=== PATIENT | female | born 1960 | race Caucasian/White ===

== ENCOUNTER 2018-06-06 17:34 | Emergency (ER) | payer BC ==
--- NOTE | 2018-06-06 17:50 | ED ---
HPI Chest Pain - HPI Summary HPI Summary: This is scribe Ed Charito documenting for attending Abundio Jennings MD. 58 y/o female presents to the ED c/o epigastric pain at around 16:30 today. Pain described as a "heaviness" and like "an upset stomach". Pt on way to [place], driving. While driving pt developed sharp epigastric pain and radiating to the center of her back - 6-7/10 at onset. Pain did not change with movement or change in position. Pain subsided some - 3/10 now. Associated sx: chills. PMHx GERD. FHx CVA (mother), [place] (father). At the doctor's office pt states she had low BP. Pt had a stress test done in 2010 after her . I, Dr. Jennings, personally performed the services described in this documentation as scribed in my presence and it is both accurate and complete. - History of Current Complaint Chief Complaint: EDChestPainROMI Time Seen by Provider: 06/06/18 17:44 Hx Obtained From: Patient Hx Last Menstrual Period: 09/28/12 Timing: Lasting Hours Pain Intensity: 4 Pain Scale Used: 0-10 Numeric Chest Pain Location: Discrete at: - epigastrium Chest Pain Radiates: Yes Chest Pain Radiates To:: Back - center Character: Heaviness, Sharp/Stabbing Aggravating Factor(s): Nothing Alleviating Factor(s): Nothing Associated Signs and Symptoms: Positive: Chills - Additional Pertinent History Primary Care Physician: [id number] - Allergy/Home Medications Allergies/Adverse Reactions: Allergies Allergy/AdvReac Type Severity Reaction Status Date / Time bee venom protein (honey bee) Allergy Swelling Verified 06/06/18 17:55 Penicillins Allergy Hives Verified 06/06/18 17:55 Home Medications: Home Medications Naproxen [Naproxen 500 mg tab] 500 mg PO DAILY PRN 06/06/18 [History Confirmed 06/06/18] PMH/Surg Hx/FS Hx/Imm Hx Previously Healthy: No Endocrine/Hematology History: Reports: Hx Blood Transfusions - venafor transfusions, Hx Anemia - NOT CURRENTLY Denies: Hx Anticoagulant Therapy, Hx Diabetes, Hx Thyroid Disease Cardiovascular History: Reports: Hx Angina - 09/26 MID CHEST RAD. INTO MID BACK , Hx Peripheral Vascular Disease - RT LEG GREATER SAPHENOUS MARTIN- SURGERY, SOME SWELLING, Hx Valvular Heart Disease - MILD TRICUSPID [place]AK, Other Cardiovascular Problems/Disorders - systemic vascular problems Denies: Hx Hypertension, Hx Pacemaker/ICD Respiratory History: Reports: Other Respiratory Problems/Disorders - Recent bronchitis with 2 rounds of zithromax and neb tx Denies: Hx Asthma, Hx Chronic Obstructive Pulmonary Disease (COPD) GI History: Reports: Hx Gastroesophageal Reflux Disease - WELL CONTROLLED, Hx Ulcer - TAKES OMEPRAZOLE FOUND ON ENDOSCOPY History: Denies: Hx Renal Disease Musculoskeletal History: Reports: Hx Arthritis - OSTEOARTHRITIS BILATERAL KNEES Sensory History: Denies: Hx Contacts or Glasses, Hx Hearing Aid Opthamlomology History: Denies: Hx Contacts or Glasses Neurological History: Denies: Hx Dementia, Hx Seizures Psychiatric History: Denies: Hx Panic Disorder, Hx Substance Abuse - Cancer History Cancer Type, Location and Year: skin cancer removed from nose and ear - Surgical History Surgery Procedure, Year, and Place: Appendectomy at a child. Tonsillectomy as a child. SAPHENOUS VEIN REMOVED [place] [facility] [place] UTERINE ABLATION [facility] [place]. EYELID REDUCTION [place] Hx Anesthesia Reactions: No Infectious Disease History: No Infectious Disease History: Denies: Hx Clostridium Difficile, Hx Hepatitis, Traveled Outside the [place] in Last 30 Days - Family History Known Family History: Positive: Cardiac Disease - [place], Other - CVA - Social History Alcohol Use: Occasionally Alcohol Amount: 1-3 TIMES/WEEK Hx Substance Use: No Substance Use Type: Reports: None Hx Tobacco Use: No Smoking Status (MU): Never Smoked Tobacco Review of Systems Positive: Chills Eyes: Negative ENT: Negative Cardiovascular: Negative Respiratory: Negative Positive: Abdominal Pain - epigastrium Genitourinary: Negative Musculoskeletal: Negative Skin: Negative Neurological: Negative Psychological: Normal All Other Systems Reviewed And Are Negative: Yes Physical Exam - Summary Physical Exam Summary: Appearance: The patient is well-nourished in no acute distress and in no acute pain. Skin: The skin is warm and dry and skin color reflects adequate perfusion. HEENT: The head is normocephalic and atraumatic. The pupils are equal and reactive. The conjunctivae are clear and without drainage. Nares are patent and without drainage. Mouth reveals moist mucous membranes and the throat is without erythema and exudate. The external ears are intact. The ear canals are patent and without drainage. The tympanic membranes are intact. Neck: The neck is supple with full range of motion and non-tender. There are no carotid bruits. There is no neck vein distension. Respiratory: Chest is non-tender. Lungs are clear to auscultation and breath sounds are symmetrical and equal. Cardiovascular: Heart is regular rate and rhythm. There is no murmur or rub auscultated. There is no peripheral edema and pulses are symmetrical and equal. Abdomen: The abdomen is soft and tender in the epigastrium. There are normal bowel sounds heard in all four quadrants and there is no organomegaly palpated. Musculoskeletal: There is no back tenderness noted. Extremities are non-tender with full range of motion. There is good capillary refill. There is no peripheral edema or calf tenderness elicited. Neurological: Patient is alert and oriented to person, place and time. The patient has symmetrical motor strength in all four extremities. Cranial nerves are grossly intact. Deep tendon reflexes are symmetrical and equal in all four extremities. Psychiatric: The patient has an appropriate affect and does not exhibit any anxiety or depression. Triage Information Reviewed: Yes Vital Signs On Initial Exam: Initial Vitals Temp Pulse Resp BP Pulse Ox 98.9 F 76 18 149/95 100 06/06/18 17:35 06/06/18 17:35 06/06/18 17:35 06/06/18 17:35 06/06/18 17:35 Vital Signs Reviewed: Yes Diagnostics - Vital Signs Vital Signs Temp Pulse Resp BP Pulse Ox 06/06/18 17:35 98.9 F 76 18 149/95 100 - Laboratory Result Diagrams: 06/06/18 18:05 06/06/18 18:05 Lab Statement: Any lab studies that have been ordered have been reviewed, and results considered in the medical decision making process. - Radiology CXR Xray Interpretation: No Acute Changes - No evidence for acute intrathoracic disease. Radiology Interpretation Completed By: Radiologist - EKG 1 EKG Interpretation: 18:19 - NSR @ 76 BPM. Chest Pain Course/Dx - Course Course Of Treatment: Ms. Ugalde was worked up here for chest pain with labs including an negative d-dimer and delayed troponin. She felt improved and her workup was normal and I recommended close follow-up with her PCP. - Diagnoses Provider Diagnoses: Chest pain Discharge - Sign-Out/Discharge Documenting (check all that apply): Patient Departure - Discharge Plan Condition: Stable Disposition: HOME Patient Education Materials: Chest Pain (ED) Referrals: Britni Us [Primary Care Provider] - 4 Days (PLEASE F/U IN 3-5 DAYS ) Additional Instructions: RETURN TO THE ED FOR WORSENING OR RETURNING SYMPTOMS - Billing Disposition and Condition Condition: STABLE Disposition: Home
[2018-06-06] MEDS ORDERED: Sucralfate TAB* 1 GM PO ONE (17:53)
[2018-06-06 18:14] LABS: ABS Basophils 0.1 10^3/ul (0-0.2); ABS Eosinophils 0.1 10^3/ul (0-0.6); ABS Lymphocytes 1.4 10^3/ul (1.0-4.8); ABS Monocytes 0.3 10^3/ul (0-0.8); ABS Neutrophils 3.7 10^3/ul (1.5-7.7); ABS Nucleated RBC 0 10^3/ul; Eosinophil % 1.2 % (0-6); Hematocrit 42 % (35-47); Hemoglobin 14.1 g/dl (12.0-16.0); Lymphocyte % 25.3 % (25-47); Mean Corpuscular HGB Conc 34 g/dl (31-36); Mean Corpuscular Hemoglobin 31 pg (27-31); Mean Corpuscular Volume 93 fL (80-97); Mean Platelet Volume 8.7 um3 (7.4-10.4); Nucleated Red Blood Cells % 0.1; Platelet Count 212 10^3/ul (150-450); Red Blood Count 4.51 10^6/ul (4.00-5.40); Red Cell Distribution Width 13 % (10.5-15); White Blood Count 5.4 10^3/ul (3.5-10.8)
[2018-06-06 18:19] LABS: INR 0.96 (0.77-1.02)
[2018-06-06 18:30] LABS: EGFR Non-African American 65.8 (>60)
--- NOTE | 2018-06-06 18:43 | RAD ---
Indication: Midsternal chest pain started today. Comparison: May 05, 2016 Technique: Upright AP 1818 hours Report: Clear lungs and pleural spaces. Negative for pneumothorax. The heart, pulmonary vasculature, and mediastinal contours are unremarkable. Unremarkable osseous structures and soft tissue contours. IMPRESSION: #. No evidence for acute intrathoracic disease.
[2018-06-06 21:53] VITALS: BP 107/70
== END 2018-06-06 21:53 | disposition home or self-care (01) ==
LOC: ED 17:34
DX: R07.9 Chest pain, unspecified (principal); Z82.49 Family history of ischemic heart disease and other diseases of the circulatory system; I73.9 Peripheral vascular disease, unspecified; K21.9 Gastro-esophageal reflux disease without esophagitis
CPT/HCPCS: 36415; 71045; 80053; 83605; 84484; 85025; 85610; 93005; 99283; A9270-GY

== ENCOUNTER 2021-04-14 14:36 | Observation (INO) ==
[~2021-04-14 14:36] MED LIST: Buffered Lidocaine 1% SYRIN 1 ml INTRADERM ONE; Clindamycin 900 MG/D5W BAG 900 MG/50 ML BAG IVPB ONE; Dexamethasone IV 4 MG/ML VIAL 1 ml VIAL ONE; DiMENhydriNATE IV 50 mg/ml 1 ml VIAL IV PUSH PRN; DiMENhydriNATE IV 50 mg/ml 1 ml VIAL ONE; Famotidine IV 10 MG/ML 2 ml VIAL (20 mg) IV SLOW PU ONE; Famotidine IV 10 MG/ML 2 ml VIAL (20 mg) ONE; HYDROcodone/ACETAMIN 5/325 mg TAB PO PRN; HYDROmorphone 1 MG/1 ML SYRINGE IV PRN; Lactated Ringers 1000 ml BAG 1,000 ML IV SCH; Lidocaine 1% MPF 5 ML VIAL ONE; Midazolam 2 mg/2 ml VIAL 1 mg/ml 2 ml VIAL (2 mg) ONE; Naloxone 0.4 mg VIAL 0.4 mg/ml 1 ml VIAL IV PRN; Ondansetron 4 mg VIAL 2 MG/ML 2 ml VIAL ONE; Phenylephrine IV 10 MG/ML 1 ml VIAL ONE; ROPIVACAINE 5 MG/ML 30 ML BTL (0.5%) ONE; Ropivacaine 5 MG/ML 20 ML VIAL 0.5% (100 MG) ONE
[2021-04-14] MEDS ORDERED: diPHENhydraMINE 25 mg TAB PO PRN (14:41)
[2021-04-14] MEDS ORDERED: Morphine 2 MG/ML SYRINGE IV PRN (14:41)
[2021-04-14] MEDS ORDERED: diPHENhydraMINE IV 50 MG/ML 1 ml VIAL (BENADRYL) IV PRN (14:41)
[2021-04-14] MEDS ORDERED: Ondansetron ODT 4 mg TAB 4 MG TAB PO PRN (14:41)
[2021-04-14] MEDS ORDERED: Magnesium Hydroxide LIQ 30 ML UDC PO PRN (14:41)
[2021-04-14] MEDS ORDERED: Lactulose 30 ml UDC PO PRN (14:41)
[2021-04-14] MEDS ORDERED: Propofol 10 MG/ML 20 ML BTL ONE (14:54)
[2021-04-14] MEDS: Lactated Ringers 1000 ml BAG 1,000 ML IV SCH (18:07)
[2021-04-14] MEDS: Ondansetron 4 mg VIAL 2 MG/ML 2 ml VIAL IV PRN (19:05)
[2021-04-14] MEDS: Magnesium Hydroxide LIQ 30 ML UDC PO SCH (20:56)
[2021-04-14] MEDS: Clindamycin 600 MG/D5W BAG 600 MG/50 ML BAG IV SCH (22:04)
[2021-04-15] MEDS: Ondansetron 4 mg VIAL 2 MG/ML 2 ml VIAL IV PRN (01:03)
[2021-04-15] MEDS: Lactated Ringers 1000 ml BAG 1,000 ML IV SCH (04:16)
[2021-04-15 05:25] LABS: Hematocrit 32 % (35-47); Hemoglobin 10.9 g/dL (12.0-16.0); Mean Platelet Volume 8.6 fL (7.4-10.4); Platelet Count 180 10^3/uL (150-450)
[2021-04-15] MEDS: Clindamycin 600 MG/D5W BAG 600 MG/50 ML BAG IV SCH ×2 (05:36→13:09)
[2021-04-15 05:40] LABS: Calcium 8.6 mg/dL (8.6-10.3); EGFR African American 96.2 (>60); EGFR Non-African American 79.5 (>60)
[2021-04-15] MEDS: Magnesium Hydroxide LIQ 30 ML UDC PO SCH (07:40)
[2021-04-15] MEDS ORDERED: Vitamin THERAPEUTIC TAB PO SCH (09:00)
[2021-04-15 11:28] VITALS: BP 106/72
== END 2021-04-15 15:57 | disposition home or self-care (01) ==
LOC: SSU 14:36 → OR 14:36
PROVIDERS: ADMIT Orthopaedic Surgery Adult Reconstructive Orthopaedic Surgery; ATTEND Orthopaedic Surgery Adult Reconstructive Orthopaedic Surgery